=== PATIENT | female | born 1985 | race Caucasian/White ===

== ENCOUNTER → 2017-09-03 | Outpatient (CLI) | payer OTHER | LOC: COL.RAD 08:15 | DX: S43.491A Other sprain of right shoulder joint, initial encounter (principal); S43.492A Other sprain of left shoulder joint, initial encounter; M75.51 Bursitis of right shoulder; M94.8X1 Other specified disorders of cartilage, shoulder | CPT/HCPCS: A9585; Q9967 ==

== ENCOUNTER 2019-04-21 12:40 | Inpatient (IN) | payer BC ==
[~2019-04-21] VITALS: Ht 177.8 cm; Wt 91.4 kg
[2019-04-26] VITALS (18 sets, daily range): BP systolic 100–131; BP diastolic 56–97; PULSE 59–87; TEMP 98–98.9
--- NOTE | 2019-04-26 07:15 | NUR ---
Presents to labor and delivery unit for repeat section. Assessment done, questions offered and answered. Oriented to room.
[2019-04-26] MEDS ORDERED: NEXIUM 20MG20 MG PO (07:37)
[2019-04-26] MEDS ORDERED: ZERTEC (07:39)
[2019-04-26 08:09] LABS: BASO % 0.4 % (0.0-2.0); EOS # 0.1 (0.0-0.7); EOS % 1.7 % (0-4.0); GRAN # 5.4 (1.4-6.5); GRAN % 70.6 % (42.2-75.2); LYMPH # 1.5 (1.2-3.4); LYMPH % 19.1 % (20.0-51.0); MEAN CELL VOLUME 83 fl (80.0-100.0); MEAN CORPUSCULAR HGB CONC 32 g/dl (33.0-37.0); MEAN PLATELET VOLUME 9.9 fl (7.4-10.4); MONO # 0.6 (0.1-0.6); MONO % 7.8 % (1.7-9.3); PLATELET COUNT 244 K/mm3 (130-400); RED BLOOD COUNT 3.43 M/mm3 (4.10-5.30); REDCELL DISTRIBUTION WIDTH-CV 13.5 % (11.5-14.5)
[2019-04-26 08:10] LABS: HEMATOCRIT 28.5 % (37.0-47.0); HEMOGLOBIN 9.2 g/dl (12.5-16.0); MEAN CORPUSCULAR HEMOGLOBIN 27 pg (27.0-31.0)
--- NOTE | 2019-04-26 10:00 | NUR ---
To pacu via bed. Alert, stable. Monitors on, denies any discomfort at this time.
--- NOTE | 2019-04-26 10:15 | NUR ---
Rests in bed, alert, holds baby lovingly. Denies any needs at this time.
--- NOTE | 2019-04-26 10:30 | NUR ---
Dismissed from pacu. To room 210 with two r.n. and spouse.
--- NOTE | 2019-04-26 10:45 | NUR ---
To room 210 via bed, alert. Denies any pain at this time. Nibp on left arm. Iv fluids continue to infuse gravity drip lactated ringers.
--- NOTE | 2019-04-26 11:15 | NUR ---
Rests in bed, alert. Lunch ordered. Denies any needs at this time.
[2019-04-27 03:00] VITALS: BP 108/72; PULSE 73; TEMP 97.9
[2019-04-27 07:47] VITALS: BP 116/68; PULSE 86; TEMP 98.4
[2019-04-27 08:12] LABS: HEMATOCRIT 28.6 % (37.0-47.0); HEMOGLOBIN 9.2 g/dl (12.5-16.0)
[2019-04-27] MEDS ORDERED: PERCOCET 325 MG1 TA2 PO (09:19)
[2019-04-27] MEDS ORDERED: MOTRIN 600600 MG/TAB PO (09:19)
--- NOTE | 2019-04-27 12:18 | NUR ---
Initial visit; Parents thanked [place] [employer] for offering congratulations and God's blessings for the of their son. [employer] thanked family for choosing [facility].
[2019-04-27 16:22] VITALS: BP 110/64; PULSE 68; TEMP 97.8
[2019-04-27 20:40] VITALS: BP 116/73; PULSE 80; TEMP 97.8
[2019-04-28 09:03] VITALS: BP 111/77; PULSE 71; TEMP 97.8
== END 2019-04-28 09:55 | disposition home or self-care (01) | DRG 788 ==
LOC: OB 04-26 06:52 → LDR 04-26 10:57 → OB 04-28 09:55 → LDR 05-04 10:47
PROVIDERS: ADMIT Obstetrics & Gynecology
PROC: 10D00Z1 Extraction of Products of Conception, Low, Open Approach (ICD-10-PCS; principal; 2019-04-26)
DX: O34.211 Maternal care for low transverse scar from previous cesarean delivery (principal); O40.3XX0 Polyhydramnios, third trimester, not applicable or unspecified; O99.02 Anemia complicating childbirth; D64.9 Anemia, unspecified; O32.8XX0 Maternal care for other malpresentation of fetus, not applicable or unspecified; Z3A.38 38 weeks gestation of pregnancy; Z37.0 Single live birth
CPT/HCPCS: J0690; J1885; J2175; J2270; J2370; J2405; J2590; J3010; J7120

== ENCOUNTER → 2019-10-01 | Outpatient (CLI) | payer BC ==
[~2019-10-01] MED LIST: MOTRIN 600600 MG/TAB PO; NEXIUM 20MG20 MG PO; PERCOCET 325 MG1 TA2 PO; ZERTEC
== END ==
LOC: COL.RAD 10:39
DX: N99.72 Accidental puncture and laceration of a genitourinary system organ or structure during other procedure (principal)
CPT/HCPCS: Q9967

== ENCOUNTER → 2020-10-02 | Outpatient (CLI) | payer BC | LOC: COL.RAD 07:00 | DX: R10.11 Right upper quadrant pain (principal); R10.13 Epigastric pain | CPT/HCPCS: A9537; J2805 ==